=== PATIENT | female | born 1990 ===

== ENCOUNTER → 2016-11-23 | Outpatient (REF) | LOC: WSOH 09:18 → WSPT 10:45 | DX: Z02.1 Encounter for pre-employment examination (principal) ==

== ENCOUNTER → 2016-11-25 | Outpatient (REF) | LOC: WSOH 10:04 | DX: Z01.83 Encounter for blood typing (principal) ==

== ENCOUNTER → 2016-12-04 | Outpatient (REF) | LOC: WSOH 10:50 | DX: Z11.1 Encounter for screening for respiratory tuberculosis (principal) ==